=== PATIENT | female | born 1985 | race Caucasian/White ===

== ENCOUNTER 2018-02-02 22:24 | Inpatient (IN) | payer OTHER ==
[~2018-02-02] VITALS: Ht 165.1 cm; Wt 71.2 kg
[~2018-02-02 22:24] MED LIST: ABILIFY 15MG15 MG PO; ABILIFY30 M1 PO; BUSPIRONE HCL30 M1 PO; CLONIDINE HCL0.1 MG PO; CYMBALTA60 MG PO; DEPO-PROVE150 MG/11 IM; DULOXETINE HCL30 MG PO; IBUPROFEN800 M1 PO; IBUPROFEN800 MG PO; LYRICA100 M1 PO; MACROBID100 MG PO; OXCARBAZEPINE300 M1; PROAIR HFA8.5 GM INH; QUETIAPINE FUMA25 M1 PO; SEROQUEL XR50 MG PO; TRAZODONE HCL100 M1 PO; VALACYCLOVIR500 M1 PO; VICODIN5-300 PO; ZOFRAN ODT4 M1 SL
--- NOTE | 2018-02-02 23:12 | ED PSYCHIATRIC COMPLAINT ---
History of Present Illness General Chief Complaint: Psychiatric Related Complaint Stated Complaint: RAN OUT OF [employer] [place], "CAN'T DO THIS ANYMORE" Source: patient, old records Exam Limitations: no limitations Vital Signs & Intake/Output Vital Signs & Intake/Output Vital Signs Date Time Temp Pulse Resp B/P B/P Pulse O2 O2 Flow FiO2 Mean Ox Delivery Rate 02/03 1211 97.9 76 18 152/70 98 Room Air 02/03 0949 98.6 72 16 162/74 98 Room Air 02/03 0758 98.5 74 18 157/84 98 Room Air 02/03 0641 98.7 88 18 126/76 99 Room Air 02/03 0120 97.8 78 18 142/76 97 Room Air 02/02 2234 98.8 112 18 136/84 96 Room Air ED Intake and Output 02/03 0000 02/02 1200 Intake Total Output Total Balance Patient 157 lb Weight Weight Reported by Patient Measurement Method Allergies Coded Allergies: oxcarbazepine (Severe, NAUSEA 06/23/16) venom-wasp (WASP VENOM) (HIVES 03/28/16) methylphenidate (From RITALIN) (Mild, NAUSEA AND FEVER 03/28/16) oxycodone (GI 03/28/16) Reconcile Medications Albuterol Sulfate (Proair Hfa) 90 MCG HFA.AER.AD 2 PUF INH Q4-6 PRN PRN SHORTNESS OF BREATH (Reported) Aripiprazole (Abilify) 30 MG TABLET 1 TAB PO QAM MENTAL HEALTH (Reported) Buspirone HCl 30 MG TABLET 1 TAB PO BID MENTAL HEALTH (Reported) Clonidine HCl 0.1 MG TABLET 1 TAB PO QPM MENTAL HEALTH (Reported) Ibuprofen 800 MG TABLET 1 TAB PO PRN PAIN (Reported) Medroxyprogesterone Acetate (Depo-Provera) 150 MG/1 ML SYRINGE 1 ML IM Q3M CONTROL (Reported) Pregabalin (Lyrica) 100 MG CAPSULE 1 CAP PO TID PAIN (Reported) Quetiapine Fumarate 25 MG TABLET 1 TAB PO BID MENTAL HEALTH (Reported) Trazodone HCl 100 MG TABLET 2 TAB PO QPM SLEEP (Reported) Valacyclovir HCl (Valacyclovir) 500 MG TABLET 1 TAB PO DAILY ANTIVIRAL ( Reported) Triage Note: PT FROM HOME C/O DRUG DETOX. PT UPSET IN TRIAGE, TEARFUL STATING THAT SHE WOULD LIKE HELP FROM USING DRUGS AND "DOESNT WANT TO " PT DENIES -SI/-HI. PT IN TRIAGE CONTINUALLY MOVING AND FIDGETING. PTS VSS. PT STATES "IM SLOWLY KILLING MYSELF, I NEED HELP, I RAN OUT OF MY MEDICATIONS AND I USE HEROIN, COCAINE, MARIJUANA." PT ARRIVED WITH [facility]. PT REPORT SMOKED "CRACK" 1 HR PRIOR TO ARRIVAL AND FOR THE PAST FEW DAYS AROUND "100 DOLLARS OF CRACK PER DAY" Triage Nurses Notes Reviewed? yes Onset: Just prior to arrival Duration: day(s):, constant, continues in ED Timing: recent history Severity: severe Associated Symptoms: impaired concentration LMP (ages 10-50): unknown : No Patient currently breastfeeds: No HPI: The patient reports abusing crack heroin marijuana. She feels anxious confused and that they are going to lead to an early . She is looking for help for her addictions. She reports not being compliant with her medications. She denies fever chills nausea vomiting diarrhea abdominal pain chest pain shortness breath headache dysuria rash bleeding suicidal ideation homicidal ideation. (Kirby Arreola MD) Past History Travel History Traveled to [place] past 21 day No Medical History Any Pertinent Medical History? see below for history Neurological: migraine, FIBROMYALGIA TBI EENT: NONE Cardiovascular: NONE Respiratory: bronchitis Gastrointestinal: constipation, irritable bowel syndrome Hepatic: NONE Renal: NONE Musculoskeletal: CHRONIC BACK PAIN Psychiatric: anxiety, DEPRESSION, BIPOLAR, PTSD POLYSUBSTANCE ABUSE. Endocrine: NONE Blood Disorders: NONE Cancer(s): NONE COUNTER HELP/Reproductive: genital herpes History of MRSA: No History of VRE: No History of CDIFF: No Influenza Vaccine: 06/21/15 Surgical History Surgical History: non-contributory Psychosocial History Who do you live with Patient/Self What is your primary language Latvian Tobacco Use: Current Daily Use Daily Tobacco Use Amount/Type: => 5 Cigarettes daily ETOH Use: occasional use Illicit Drug Use: cocaine, heroin, marijuana Family History Family History, If Any: Relation not specified for: *No pertinent family history Hx Contributory? No (Kirby Arreola MD) Review of Systems Review of Systems Constitutional: Reports: no symptoms. EENTM: Reports: no symptoms. Respiratory: Reports: no symptoms. Cardiovascular: Reports: no symptoms. GI: Reports: no symptoms. Genitourinary: Reports: no symptoms. Musculoskeletal: Reports: no symptoms. Skin: Reports: no symptoms. Neurological/Psychological: Reports: see HPI, depressed, emotional problems. Hematologic/Endocrine: Reports: no symptoms. Immunologic/Allergic: Reports: no symptoms. All Other Systems: Reviewed and Negative (Kirby Arreola MD) Physical Exam Physical Exam General Appearance: well developed/nourished, alert, awake, anxious, moderate distress, thin Head: atraumatic, normal appearance Eyes: Bilateral: normal appearance, PERRL, EOMI. Ears, Nose, Throat: normal pharynx, normal ENT inspection, hearing grossly normal Neck: normal inspection, supple, full range of motion, no midline tenderness Respiratory: normal breath sounds, chest non-tender, no respiratory distress, quiet respiration, lungs clear Cardiovascular: regular rate/rhythm, normal peripheral pulses, norml femoral pulses equa Gastrointestinal: normal bowel sounds, soft, non-tender, no organomegaly Extremities: normal range of motion, no ligament instability Neurological/Psychiatric: no motor/sensory deficits, awake, agitated, alert, normal mood/affect, anxious, marketing communications assistant II-XII nml as tested, oriented x 3 Appearance/Memory/Insight: disheveled, impaired insight Behavoir/Eye Contact/Speech: avoids eye contact, increased rate of speech Thoughts/Hallucinations: no apparent hallucination Skin: intact, normal color, warm/dry SAD PERSONS Done? patient not suicidal (Kirby Arreola MD) Progress Differential Diagnosis: drug intoxication, drug overdose, drug withdrawal, electrolyte abnormality, hypoglycemia Plan of Care: Orders Procedure Date/time Status THYROID STIMULATING HORMONE 02/04 0600 Active POTASSIUM 02/04 0600 Active Regular Diet 02/03 D Active Regular Diet 02/03 B Complete Admit to inpatient psych 02/03 1232 Active Patient Data - inpatient psych 02/03 1202 Active Admit to inpatient psych 02/03 1202 Active URINE DRUG SCREEN FOR ER ONLY 02/03 1017 Complete ED CRISIS PSYCH CONSULT 02/03 0622 Active Vital Signs 02/03 UNK Active Activity/Ambulation 02/03 UNK Active URINE 02/02 2307 Complete CIWA 02/02 2250 Active ETHANOL 02/02 2248 Complete COMPREHENSIVE METABOLIC PANEL 02/02 2248 Complete CBC WITHOUT DIFFERENTIAL 02/03 2248 Complete Current Medications Sig/Kel Start time Last Medication Dose Stop Time Status Admin Aripiprazole 5 MG DAILY 02/04 0900 UNVr (Abilify) Clonidine 0.1 MG Q6P PRN 02/03 1215 UNVr (Catapres) Dicyclomine HCl 20 MG Q6P PRN 02/03 1215 UNVr (Bentyl) Gabapentin 300 MG Q6P PRN 02/03 1215 UNVr (Neurontin) Hydroxyzine HCl 50 MG Q6P PRN 02/03 1215 UNVr (Atarax) Loperamide HCl 2 MG Q6P PRN 02/03 1215 UNVr (Imodium) Nicotine 2 MG Q2P PRN 02/03 1215 UNVr (Nicotine) Trazodone HCl 100 MG AT BEDTIME NEED.. 02/03 1215 UNVr (Desyrel) Nicotine 21 MG DAILY 02/03 1202 UNVr 02/03 (Nicoderm) 1209 Benztropine Mesylate 1 MG Q6P PRN 02/03 1200 UNVr (Cogentin 1 MG Tablet) Benztropine Mesylate 1 MG Q6P PRN 02/03 1200 UNVr (Cogentin) Haloperidol 5 MG Q6P PRN 02/03 1200 UNVr (Haldol) Haloperidol 5 MG Q6P PRN 02/03 1200 UNVr (Haldol) Lorazepam 2 MG Q6P PRN 02/03 1200 UNVr (Ativan) Lorazepam 2 MG Q6P PRN 02/03 1200 UNVr (Ativan) Albuterol Sulfate 2 PUF Q4-6 PRN PRN 02/02 2245 AC (Ventolin) Laboratory Tests 02/03/18 0957: Urine Opiates Screen 328, Methadone Screen 713 H, Barbiturate Screen 81, Ur Phencyclidine Scrn < 6.00, Amphetamines Screen < 100, U Benzodiazepines Scrn < 85, Urine Cocaine Screen > 1000 H, Urine Cannabis Screen 62.80 H, Urine Test NEGATIVE 02/03/18 0046: Anion Gap 12, Estimated GFR > 60, BUN/Creatinine Ratio 17.5, Glucose 90, Calcium 9.5, Total Bilirubin 0.4, AST 23, ALT 37, Alkaline Phosphatase 84, Total Protein 6.6, Albumin 3.8, Globulin 2.8, Albumin/Globulin Ratio 1.4, CBC w Diff NO MAN DIFF REQ, RBC 4.57, MCV 87.9, MCH 30.6, MCHC 34.8, RDW 13.8, MPV 8.9, Gran % 52.2, Lymphocytes % 38.0, Monocytes % 8.2, Eosinophils % 0.9, Basophils % 0.7, Absolute Granulocytes 4.5, Absolute Lymphocytes 3.3, Absolute Monocytes 0.7 H, Absolute Eosinophils 0.1, Absolute Basophils 0.1, Serum Alcohol < 10.0 02/02/18 2248: Methadone Screen Cancelled, Barbiturate Screen Cancelled, Ur Phencyclidine Scrn Cancelled, Amphetamines Screen Cancelled, U Benzodiazepines Scrn Cancelled, Urine Cocaine Screen Cancelled, Urine Cannabis Screen Cancelled Hand-Off Endorsed To: Seth Hamilton MD Endorsed Time: 0700 Pending: consult, labs (drug screen) (Kirby Arreola MD) Departure Departure Disposition: STILL A PATIENT Condition: Stable Clinical Impression Primary Impression: Depression Secondary Impressions: Polysubstance abuse Referrals: Patient Has No Primary Care Dr (PCP/Family) Departure Forms: Customer Survey General Discharge Information (Kirby Arreola MD) Psych Admission Note Psychiatric Admission: I have seen and evaluated SURAJ HARRIS. I have also reviewed all the pertinent lab results and diagnostic results. SURAJ HARRIS will be admitted to our inpatient Psychiatric unit for treatment and care. (Joy YANG,Seth Case)
[2018-02-03 01:02] LABS: HEMATOCRIT 40.2 % (37-47); MEAN CORPUSCULAR HGB 30.6 PG (27.0-31.0); MEAN CORPUSCULAR HGB CONC 34.8 G/DL (33.0-37.0); MEAN CORPUSCULAR VOLUME 87.9 FL (81.0-99.0); MEAN PLATELET VOLUME 8.9 FL (7.4-10.4); PLATELET COUNT 168 /CUMM (130-400); RBC DISTRIBUTION WIDTH 13.8 % (11.5-14.5); RED BLOOD CELL CT 4.57 /CUMM (4.20-5.40); WHITE BLOOD CELL COUNT 8.6 /CUMM (4.8-10.8)
[2018-02-03 01:05] LABS: ABSOLUTE EOSINOPHIL COUNT 0.1 /CUMM (0.0-0.7); ABSOLUTE GRANULOCYTE CT 4.5 /CUMM (1.4-6.5); ABSOLUTE LYMPH COUNT 3.3 /CUMM (1.2-3.4); ABSOLUTE MONOCYTE COUNT 0.7 /CUMM (0.10-0.60); BASOPHIL % 0.7 % (0.0-2.0); EOSINOPHIL % 0.9 % (0-5); GRANULOCYTE % 52.2 % (42.2-75.2)
[2018-02-03 01:06] LABS: ABSOLUTE BASOPHIL COUNT 0.1 /CUMM (0.0-0.2)
--- NOTE | 2018-02-03 11:39 | ED PSYCH CRISIS CONSULTATION ---
Crisis Consult Basic Assessment Date of Consult: 02/03/18 Responsible Person/Accompanied By: self Insurance Authorization: Insurance #1: Insurance name: AL[employer] FU Phone number: Policy number: [id number] Group number: Authorization number: ED Provider: Patient's ED Provider: Kirby Arreola MD Primary Care Physician: Patient's PCP: Patient Has No Primary Care Dr PCP's Phone Number: Current Psychiatrist: none Chief Complaint: Psychiatric Related Complaint Patient's Quote: "I'm slowly killing myself." Present Illness: The pt is a 32yo female who arrived at the ED stating Im slowly killing myself. Pt reports she relapsed several months ago and has been using heroin and crack cocaine. During this assessment the pt presented drowsy, oriented and cooperative with goal directed speech. The pt denies SI but reports she is depressed and gave up fighting. The pt is requesting inpatient treatment. The pt denies HI, AH and VH. The pt reports a hx of depression, bipolar, PTSD, insomnia and addiction. The pt denies any prior suicide attempts. The pt reports a long hx of relapsing after brief periods of sobriety. The pt reports she has been binging on heroin and crack over the past several months after detoxing off of Suboxone. The pt reports she last injected heroin 3 days ago and purchased methadone off the street yesterday. The pt reports she has been smoking crack cocaine daily. The pt reports poor sleep and poor concentration. The pt denies any problems with appetite. The pts toxicology screen is positive for cocaine, methadone and cannabis. The pt reports she has been living in a tent on the street in [place] and has minimal support. The pt reports a long hx of rehabs as including [facility], [facility] and [facility]. The pt reports her most recent provider (several months ago) was Dr. Gutierrez in [place]. The pt reports she cannot remember the names of her past psychiatric medication. CSSRS completed and placed in the pt's chart. This marketing writer spoke with pts financial and healthcare conservator Cesilia Bard ). Ms. Vicente stated she is an litigation attorney associate and the court appointed conservator. Ms. Vicente reports she has been encouraging the pt to seek inpatient dual dx treatment. Ms. Vicente reports she is increasingly worried about the pts safety. Ms. Vicente reports the pt is demonstrating poor judgement and had multiple relapses in the past year. Ms. Vicente is not aware of any suicidal statements or behavior. Ms. Vicente reports the pt and her boyfriend temporarily moved in with the pts grandmother after the pt was discharged from a sober home for violating the house rules. Ms. Vicente stated the pts 3yo daughter is living with the pts father. Ms. Vicente stated she is aware the pt made SI statements in the past. Ms. Vicente stated the pt has been prescribed Lyrica for fibromyalgia and back pain. Ms. Vicente stated the pt has an implant in her neck to help manage pain and questioned if the implant needs to be removed. The pt was last seen in the ED at [facility] on June 2016. The pt presented with depression with SI and cocaine use. The pt has 2 inpatient admissions to [facility], March 2016 and June 2016. Pt's presentation discussed by phone with Dr. Augustin, plan is for hospitalization on [facility]. Pt stated she is in agreement with this plan. Pt' s conservator Ms. Vicente stated by phone she is in agreement with this plan. Ms. Vicente is coming to the ED to sign the voluntary admission form. Patient's Address: [place] [address] Other Phone Number: Who Do You Live With? Patient/Self Family/Informants Interviewed: spoke by phone with conservator Cesilia Vicente Allergies - Coded Allergies: oxcarbazepine (Severe, NAUSEA 06/23/16) venom-wasp (WASP VENOM) (HIVES 03/28/16) methylphenidate (From RITALIN) (Mild, NAUSEA AND FEVER 03/28/16) oxycodone (GI 03/28/16) Current Medications - Scheduled Medications Aripiprazole (Abilify) 30 MG TABLET 1 TAB PO QAM MENTAL HEALTH (Reported) Entered as Reported by Mariama Harrison on 03/28/16 1601 Buspirone HCl 30 MG TABLET 1 TAB PO BID MENTAL HEALTH #60 (Reported) Entered as Reported by Mariama Harrison on 03/28/16 1601 Clonidine HCl 0.1 MG TABLET 1 TAB PO QPM MENTAL HEALTH (Reported) Entered as Reported by Mariama Harrison on 03/28/16 1602 Medroxyprogesterone Acetate (Depo-Provera) 150 MG/1 ML SYRINGE 1 ML IM Q3M CONTROL (Reported) Entered as Reported by Mariama Harrison on 03/28/16 1603 Pregabalin (Lyrica) 100 MG CAPSULE 1 CAP PO TID PAIN #90 (Reported) Entered as Reported by Daniele Rust on 06/23/16 1104 Quetiapine Fumarate 25 MG TABLET 1 TAB PO BID MENTAL HEALTH #60 (Reported) Entered as Reported by Daniele Rust on 06/23/16 1106 Trazodone HCl 100 MG TABLET 2 TAB PO QPM SLEEP #60 (Reported) Entered as Reported by Mariama Harrison on 03/28/16 1601 Valacyclovir HCl (Valacyclovir) 500 MG TABLET 1 TAB PO DAILY ANTIVIRAL #90 ( Reported) Entered as Reported by Mariama Harrison on 03/28/16 1603 Scheduled PRN Medications Albuterol Sulfate (Proair Hfa) 90 MCG HFA.AER.AD 2 PUF INH Q4-6 PRN PRN SHORTNESS OF BREATH #9 (Reported) Entered as Reported by Jimbo Murcia APRN on 06/28/16 1708 Ibuprofen 800 MG TABLET 1 TAB PO PRN PAIN #60 (Reported) Entered as Reported by Mariama Harrison on 03/28/16 1602 Laboratory Results: Laboratory Tests 02/03/18 0957: Urine Opiates Screen 328, Methadone Screen 713 H, Barbiturate Screen 81, Ur Phencyclidine Scrn < 6.00, Amphetamines Screen < 100, U Benzodiazepines Scrn < 85, Urine Cocaine Screen > 1000 H, Urine Cannabis Screen 62.80 H, Urine Test NEGATIVE 02/03/18 0046: Anion Gap 12, Estimated GFR > 60, BUN/Creatinine Ratio 17.5, Glucose 90, Calcium 9.5, Total Bilirubin 0.4, AST 23, ALT 37, Alkaline Phosphatase 84, Total Protein 6.6, Albumin 3.8, Globulin 2.8, Albumin/Globulin Ratio 1.4, CBC w Diff NO MAN DIFF REQ, RBC 4.57, MCV 87.9, MCH 30.6, MCHC 34.8, RDW 13.8, MPV 8.9, Gran % 52.2, Lymphocytes % 38.0, Monocytes % 8.2, Eosinophils % 0.9, Basophils % 0.7, Absolute Granulocytes 4.5, Absolute Lymphocytes 3.3, Absolute Monocytes 0.7 H, Absolute Eosinophils 0.1, Absolute Basophils 0.1, Serum Alcohol < 10.0 02/02/18 2248: Methadone Screen Cancelled, Barbiturate Screen Cancelled, Ur Phencyclidine Scrn Cancelled, Amphetamines Screen Cancelled, U Benzodiazepines Scrn Cancelled, Urine Cocaine Screen Cancelled, Urine Cannabis Screen Cancelled Past History Past Medical History Neurological: migraine, FIBROMYALGIA TBI EENT: NONE Cardiovascular: NONE Respiratory: bronchitis Gastrointestinal: constipation, irritable bowel syndrome Hepatic: NONE Renal: NONE Musculoskeletal: CHRONIC BACK PAIN Psychiatric: anxiety, DEPRESSION, BIPOLAR, PTSD POLYSUBSTANCE ABUSE. 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 Psychosocial History Strengths/Capabilities: Motivated for treatment, involved conservator Physical Limitations (Interventions): Chronic neck/back pain, chronic migraines Psychiatric Treatment History Psych Treatment Psychiatric Treatment Yes Inpatient Treatment Yes Outpatient Treatment Yes Location of Treatment Dr. Hafsa Hayes, pt unable to identify other providers Reason for Treatment depression, Bipolar, PTSD, substance use Dates of Treatment long hx Response to Treatment poor Diagnosis by History: Per patient- depression, Bipolar; cocaine use disorder, Cannibis use disorder, opiate use disorder Substance Use/Abuse History Drug Use/Abuse 1 Substances Used/Abused Yes Substance Used/Abused Crack Cocaine First Use age 24 Last Used 02/02/18 How much used/taken pt reports 1 gram or more per day How often daily For how long 8 years Route of use inhale Drug Use/Abuse 2 Substances Used/Abused Yes Substance Used/Abused Heroin First Use age 31 Last Used 01/31/18 How much used/taken pt reports 2-3 bags per day How often daily For how long past 1 year Route of use inject Drug Use/Abuse 3 Substances Used/Abused Yes Substance Used/Abused Marijuana First Use pt unable to identify Last Used 02/02/18 How much used/taken pt unable to quantify How often daily For how long pt reports a long hx Route of use smoke Substance Abuse Treatment Substance Abuse Treatment Past Substance Abuse [place] Yes Inpatient Treatment Yes Outpatient Treatment Yes Location of Treatment [facility], Dr. Naoman ([place]) Reason for Treatment Heroin, Crack Cocaine Dates of Treatment Pt reports a long hx Response to Treatment pt reports frequent relapses. Current Mental Status Mental Status Orientation: Person, Place, Situation Affect: Sad Speech: WNL Neuro-vegetative: Concentration Poor, Sleep Disturbance Appearance Appearance- Dress/Hygiene: appropriate Behaviors Thought Process: WNL Thought Content: WNL Memory: WNL Insight: Fair SI/HI Risk Assessment Past Suicidal Ideation/Attempts Yes Current Suicidal Ideation/Att Yes Past Homicidal Ideation/Att: No Current Homicidal Ideation/Attempts No Degree of Intent: Thoughts/No Intent Danger To: Self Gravely Disabled: Poor Impulse Control, Poor Judgment Risk Factors: access to lethal means, chronic/serious med cond., high anxiety/ distress, SA/MH hospitalized, substance abuse, poor impulse control, lack of outcome concern, limited support Lethality Ratin PTSD Checklist PTSD Done? patient declined ED Management Sitter: Yes Restraints: No DSM5/PS Stressors/Medical Prob Diagnosis' (DSM 5, Stressors, Medical): F32.9 Unspecified Depressive Disorder F14.20 Stimulant Use Disorder, Cocaine, Severe F11.20 Opioid Use Disorder, Severe F12.20 Cannabis Use Disorder, Severe F43.10 Post Traumatic Stress Disorder Current GAF: 30 Departure Disposition Psych Medical Clearance Date: 02/03/18 Medically Cleared at: 929 Time Started: 929 Time Ended: 1015 Psychiatrist Consulted: Dr. Augustin Date Disposition Established: 02/03/18 Time Disposition Established: 1202 Plan for Disposition - Modality: Inpatient Psychiatry Facility: [facility] Rationale for Disposition: Pt's risk factors warrant hospitalization. Type of IP Admission: Voluntary Referrals Patient Has No Primary Care Dr (PCP/Family)
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
[2018-02-03 15:49] VITALS: BP 125/73
--- NOTE | 2018-02-03 17:46 | History & Physical ---
General Information and HPI MD Statement: I have seen and personally examined SURAJ HARRIS and documented this H&P. Source of Information: patient Exam Limitations: no limitations History of Present Illness: Ms. Harris is a 32 yo F with PMHx of Fibromyalgia (`2007), chronic migraine, smoker ( PPD), gential herpes came to ED because she wanted to get help with depression/bipoloar disorder. She has no place to go and lives in a tent. She reports going to [facility] in [place] for primary care physicians. However, she ran out of her meds and recently called her PCP for med refills. Also reports that about a month ago was discharged by her Psych treatment provider from [facility]. The pt denies any problems with appetite. The pts toxicology screen is positive for cocaine, methadone and cannabis. Allergies/Medications Allergies: Coded Allergies: oxcarbazepine (Severe, NAUSEA 06/23/16) venom-wasp (WASP VENOM) (HIVES 03/28/16) methylphenidate (From RITALIN) (Mild, NAUSEA AND FEVER 03/28/16) oxycodone (GI 03/28/16) Home Med list Albuterol Sulfate (Proair Hfa) 90 MCG HFA.AER.AD 2 PUF INH Q4-6 PRN PRN SHORTNESS OF BREATH (Reported) Aripiprazole (Abilify) 30 MG TABLET 1 TAB PO QAM MENTAL HEALTH (Reported) Buspirone HCl 30 MG TABLET 1 TAB PO BID MENTAL HEALTH (Reported) Clonidine HCl 0.1 MG TABLET 1 TAB PO QPM MENTAL HEALTH (Reported) Ibuprofen 800 MG TABLET 1 TAB PO PRN PAIN (Reported) Medroxyprogesterone Acetate (Depo-Provera) 150 MG/1 ML SYRINGE 1 ML IM Q3M CONTROL (Reported) Pregabalin (Lyrica) 100 MG CAPSULE 1 CAP PO TID PAIN (Reported) Quetiapine Fumarate 25 MG TABLET 1 TAB PO BID MENTAL HEALTH (Reported) Trazodone HCl 100 MG TABLET 2 TAB PO QPM SLEEP (Reported) Valacyclovir HCl (Valacyclovir) 500 MG TABLET 1 TAB PO DAILY ANTIVIRAL ( Reported) Past History Travel History Traveled to [place] past 21 day No Medical History Neurological: migraine, FIBROMYALGIA TBI EENT: NONE Cardiovascular: NONE Respiratory: bronchitis Gastrointestinal: constipation, irritable bowel syndrome Hepatic: NONE Renal: NONE Musculoskeletal: CHRONIC BACK PAIN Psychiatric: anxiety, DEPRESSION, BIPOLAR, PTSD POLYSUBSTANCE ABUSE. 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 Past Family/Social History Family History Relations & Conditions if any Relation not specified for: *No pertinent family history Psychosocial History Where do you live? Home ETOH Use: occasional use Illicit Drug Use: cocaine, heroin, marijuana Review of Systems Review of Systems Constitutional: Reports: see HPI. EENTM: Denies: no symptoms. Cardiovascular: Denies: no symptoms. Respiratory: Denies: no symptoms. Genitourinary: Denies: no symptoms. Exam & Diagnostic Data Last 24 Hrs of Vital Signs/I&O Vital Signs Date Time Temp Pulse Resp B/P B/P Pulse O2 O2 Flow FiO2 Mean Ox Delivery Rate 02/03 1549 97.8 88 125/73 02/03 1431 98.2 80 18 147/72 97 Room Air Room Air 02/03 1211 97.9 76 18 152/70 98 Room Air 02/03 0949 98.6 72 16 162/74 98 Room Air 02/03 0758 98.5 74 18 157/84 98 Room Air 02/03 0641 98.7 88 18 126/76 99 Room Air 02/03 0120 97.8 78 18 142/76 97 Room Air 02/02 2234 98.8 112 18 136/84 96 Room Air Intake & Output 02/03 1600 02/03 0800 02/03 0000 Intake Total Output Total Balance Patient 71.214 kg Weight Weight Reported by Patient Measurement Method Physical Exam General Appearance Alert, Cooperative, No Acute Distress Skin No Rashes, No Breakdown HEENT Mucous Membr. moist/pink Lungs Clear to Auscultation Abdomen Soft, No Tenderness Neurological Strength at 5/5 X4 Ext Extremities No Clubbing, No Cyanosis Assessment/Plan Assessment: Ms. Harris is a 32 yo F with PMHx of Fibromyalgia (`2007), chronic migraine, smoker ( PPD), gential herpes came to ED because she wanted to get help with depression/bipoloar disorder. She has no place to go and lives in a tent. She reports going to [facility] ([facility] in [place] for primary care physicians. However, she ran out of her meds and recently called her PCP for med refills. Also reports that about a month ago was discharged by her Psych treatment provider from [facility]. The pt denies any problems with appetite. The pts toxicology screen is positive for cocaine, methadone and cannabis. found to have hypokalemia --replete K --f/u Psych recs As Ranked By This Provider Problem List: 1. Depression 2. Major depression Core Measures/Misc (04/01) Acute Coronary Syndrome ACS Diagnosis: No Congestive Heart Failure Congestive Heart Failure Diagnosis No Cerebrovascular Accident CVA/TIA Diagnosis: No VTE (View Protocol) VTE Risk Factors No risk factors No Mechanical VTE Prophylaxis d/t LowRisk-No Interven Req'd No VTE Pharm Prophylaxis d/t LowRisk-No Interven Req'd Sepsis (View protocol) Sepsis Present: No If YES complete Sepsis Event Note If YES complete Sepsis Event Note
[2018-02-03 20:04] VITALS: BP 107/69
[2018-02-03 20:05] VITALS: BP 107/69
[2018-02-03 21:56] VITALS: BP 113/55
[2018-02-04] VITALS (11 sets, daily range): BP systolic 111–131; BP diastolic 57–84
--- NOTE | 2018-02-04 14:44 | CPS PROVIDER INIT ASMT PSYCH ---
Psychiatric Admission [employer] Consultant's Note Reviewed: Yes Patient Seen and Examined: Yes Identifying Information: 32yo female who arrived at the ED stating Im slowly killing myself. Chief Complaint: Reaction to Hospitalization: The patient was admitted voluntarily History of Present Illness Onset of Illness: The pt is a 32yo female who arrived at the ED stating Im slowly killing myself. Pt reports she relapsed several months ago and has been using heroin and crack cocaine. During this assessment the pt presented drowsy, oriented and cooperative with goal directed speech. The pt denies SI but reports she is depressed and gave up fighting. The pt is requesting inpatient treatment. The pt denies HI, AH and VH. The pt reports a hx of depression, bipolar, PTSD, insomnia and addiction. The pt denies any prior suicide attempts. The pt reports a long hx of relapsing after brief periods of sobriety. The pt reports she has been binging on heroin and crack over the past several months after detoxing off of Suboxone. The pt reports she last injected heroin 3 days ago and purchased methadone off the street yesterday. The pt reports she has been smoking crack cocaine daily. The pt reports poor sleep and poor concentration. The pt denies any problems with appetite. The pts toxicology screen is positive for cocaine, methadone and cannabis. The pt reports she has been living in a tent on the street in [place] and has minimal support. The pt reports a long hx of rehabs as including [facility], [facility] and [facility]. The pt reports her most recent provider (several months ago) was Dr. Gutierrez in [place]. Circumstances Leading to Admission: See above Problem(s) Justifying Need for Admission: See above Past Psychiatric History Past Diagnosis(es)- if any: anxiety, DEPRESSION, BIPOLAR, PTSD POLYSUBSTANCE ABUSE. Past Precipitating Factors- if any: Relapses - Include inpatient and outpatient treatment Treatment History: Patient was previously admitted to she also was seeing a psychiatrist in the [place] area Previous diagnoses included included depression and bipolar disorder, PTSD, polysubstance use disorder patient had inpatient psychiatric hospitalizations History of Suicide Attempts or Gestures Patient denied past suicide attempts. Substance Abuse History: Crack cocaine and heroin, methadone, cannabis Allergies: Coded Allergies: oxcarbazepine (Severe, NAUSEA 06/23/16) venom-wasp (WASP VENOM) (HIVES 03/28/16) methylphenidate (From RITALIN) (Mild, NAUSEA AND FEVER 03/28/16) oxycodone (GI 03/28/16) Home Med List: Donta Rendon - Include any medical condition(s) that may - impact the patient's recovery/remission Past History Medical History Neurological: migraine, FIBROMYALGIA TBI EENT: NONE Cardiovascular: NONE Respiratory: bronchitis Gastrointestinal: constipation, irritable bowel syndrome Hepatic: NONE Renal: NONE Musculoskeletal: CHRONIC BACK PAIN Psychiatric: anxiety, DEPRESSION, BIPOLAR, PTSD POLYSUBSTANCE ABUSE. 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 Substance Use: Patient reportedly had history of alcoholism on both sides father and mother. Suicides: There has been no suicides in the family Social History Living Situation: Currently homeless. Significant Relationships (family/friends): Boyfriend, the patient also has a 4-year-old daughter but she has not seen in a while she has a very strained relationship with her daughter's father. The patient has 3/2 siblings Education: It is not clear how thought that the patient go in his education or training. Vocation/Occupation: Currently unemployed Legal: I am not sure whether the patient has any legal entanglements at this point. Healthly Behaviors Screening Tobacco Screening Tobacco Use from ED Docu: Current Daily Use Daily Tobacco Use Amount/Type: => 5 Cigarettes daily - If tobacco counseling indicated - the following topics are required. - #1 Recognizing dangerous situations. - #2 Coping Skills. - #3 Basic information about quitting. Status of Tobacco Cessation Counseling: #1, #2 AND #3 Completed Cessation Med Status Nicotine Gum Ordered Alcohol Screening - ETOH screen POS if BAL >=80 or Audit-C>= M4/F3 Audit-C Score from Diag Assess: 1 Blood Alcohol Level: Laboratory Tests 02/03 0046 Toxicology Serum Alcohol (<10 MG/DL) < 10.0 Alcohol Use Screening Results: Neg per Audit C &/or BAL - If ETOH counseling indicated - the following topics are required. - #1 Express concern about the patient's - drinking at unhealthy levels, include informing - of national norms for moderate drinking: - men <= 14 drinks/week, max 4 drinks/occasion - women <= 7 drinks/week, max 3 drinks/occasion - #2 Providing feedback, including linking alcohol to - negative physical effects (liver injury, hypertension) - negative emotional effects (relationship problems and - depression) - negative occupational consequences (reduced work - performance) - #3 Advising the patient to abstain from alcohol or - to drink below national norms for moderate drinking - (as listed above). Status of ETOH Use Counseling: N/A B/C NO ETOH Use Metabolic Screening - Screen if on a Neuroleptic Medication - Metabolic screening should include: - Blood Pressure, BMI, Glucose or Hgb A1c, & a - Lipid profile from within the past 365 days. Metabolic Screening Patient on a neuroleptic BMI: Blood Pressure: 117/75 Laboratory Results From [facility] (If applicable): Lab Cholesterol 197 MG/DL 03/30/16 0636 Cholesterol/HDL Ratio 4 % 03/30/16 0636 HDL Cholesterol 46 mg/dL 03/30/16 0636 Hemoglobin A1c 5.5 % 03/30/16 0636 LDL Cholesterol, Calc 125 mg/dL 03/30/16 0636 Triglycerides 133 mg/dL 03/30/16 0636 Exam and Plan Mental Status Examination Ambulation Status: Steady gait Appearance: Slightly disheveled Attitude towards examiner: Marginally cooperative Psychomotor activity: Slightly increased psychomotor activity Behavior: No significant abnormalities, patient is in withdrawal Quality of speech: Reduced rate and quantity Affect: Irritable Mood: "Not feeling well"/in withdrawals Suicidal Ideation: He denied thinking of suicide today Homicidal Ideation: Denied thinking of homicide today Hallucinations: Denied hallucinations Paranoid/Delusional Material: Denied feeling paranoid, there were no delusions during the interview Difficulties with thought organization: Patient was coherent, there were no difficulties with thought organization. Insight: She showed partial insight Judgment: Judging by her recent history, judgment is poor Orientation: She was alert and oriented to person and place but not time Cognition: She seems to struggle with information processing, attention, and concentration Memory Function: Memory could not be assessed today Estimate of intellectual functioning: Average Assets/Strengths Patient Identified Assets/Strengths: The patient all in all seems to be physically healthy, she does have some supports in the community. Impression/Plan Impression and Plan: 52-year-old single white female with extensive substance abuse history presents with depression and anxiety and mild withdrawals - Include all active medical diagnosis that require tx DSM 5 Diagnosis(es): Unspecified bipolar disorder Generalized anxiety disorder Opioid use disorder Cocaine use disorder - Initial Tx Plan for Active Psych & Medical Conditions Treatment Plan: Inpatient psychiatric care with safety checks every 15 minutes and Reduce Abilify to 20 mg daily Reduce Cymbalta to 60 mg once daily Use methadone 30 mg today and 20 mg tomorrow morning Continue observation for withdrawal to Replace trazodone with Klonopin 1.5 mg at bedtime for sleep - Factors that would help patient function - in a less restrictive setting. Factors: The patient would be discharge once detoxification is completed and if she continues to deny thoughts of suicide
--- NOTE | 2018-02-04 14:51 | SOCIAL WORKER PROG NOTE PSYCH ---
See Addendum Social Work Progress Note Progress Note This press writer met with patient. She was lying in bed and reporting not feeling well due to "detoxing off Methadone, Heroin and Crack." Patient also stated that she struggles with neck and back pain and Fibromyalgia. Patient stated that she has been taking Methadone "for a couple months," unprescribed. Patient stating that she has been taking Heroin ("a couple bags a day," IV) and Crack (1 or more grams per day, smoked) for "a couple months." She stated that she is diagnosed with PTSD, Bipolar and insomnia. She is interested in going to rehab, specifically [facility]. "No CVH or work programs." Patient is agreeable to a family meeting with her father, Haris Laureano ([phone]). She denied SI/HI/ hallucinations.
[2018-02-05 07:50] VITALS: BP 124/74
[2018-02-05 08:03] VITALS: BP 124/74
--- NOTE | 2018-02-05 08:20 | CP SOUTH PROGRESS NOTE PSYCH ---
Psych (Inpt) Progress Note Progress Note Vital Signs Date Time Temp Pulse Resp B/P B/P O2 02/05 0803 97.2 72 124/74 02/05 0750 97.2 72 124/74 02/04 2010 96.9 78 131/80 02/04 2006 96.9 78 131/80 02/04 1755 97.8 02/04 1716 97.8 02/04 1609 90 131/84 Mental Status Examination Suzette was alert and oriented to time, person, and place. She had steady gait, she was well groomed today, calm and cooperative, she showed normal psychomotor activity, no significant abnormalities in behavior, normal speech, she showed brighter/animated affect, she reported feeling less depressed. She denied thinking of suicide today, Denied thinking of homicide today, Denied hallucinations, Denied feeling paranoid, there were no delusions during the interview Patient was coherent, there were no difficulties with thought organization. Today she did not seem to have problem with information processing. She showed better attention and concentration. There was no evidence of short-term memory impairment. Assessment: A 32-year-old single white female with extensive substance abuse history presents with depression and anxiety and mild withdrawals Diagnoses: Unspecified bipolar disorder Generalized anxiety disorder Opioid use disorder Cocaine use disorder. Treatment Plan Update: Continue Abilify 20 mg daily Continue Cymbalta 60 mg once daily Reduce methadone to 15 mg tomorrow , 10 mg the day after and 5 mg the day after then STOP Reduce Klonopin to 1 mg at bedtime Insight: She showed partial insight Judgment: Judging by her recent history, judgment is poor Orientation: She was alert and oriented to person and place but not time Cognition: She seems to struggle with information processing, attention, and concentration Memory Function: Memory could not be assessed today Estimate of intellectual functioning: Average Assets/Strengths Patient Identified Assets/Strengths: The patient all in all seems to be physically healthy, she does have some supports in the community. Impression/Plan Impression and Plan: 52-year-old single white female with extensive substance abuse history presents with depression and anxiety and mild withdrawals - Include all active medical diagnosis that require tx Diagnosis(es): Unspecified bipolar disorder Generalized anxiety disorder Opioid use disorder Cocaine use disorder Treatment Plan: Inpatient psychiatric care with safety checks every 15 minutes and Reduce Abilify to 20 mg daily Reduce Cymbalta to 60 mg once daily Use methadone 30 mg today and 20 mg tomorrow morning Continue observation for withdrawal to Replace trazodone with Klonopin 1.5 mg at bedtime for sleep
[2018-02-05 12:16] VITALS: BP 141/67
--- NOTE | 2018-02-05 15:34 | SOCIAL WORKER PROG NOTE PSYCH ---
See Addendum Social Work Progress Note Progress Note This typewriter ribbon winder met with the patient. She stated that she had a phone call with her father last night which "did not go well" and she does not want this typewriter ribbon winder to contact her father. Patient denied SI/HI/AH/VH. She is still interested in rehabs and has agreed to call her conservator with this typewriter ribbon winder later today. Patient also added that she is on the housing list in [place] and expects to be "in the top 90." This typewriter ribbon winder spoke with Diane at [place] [address] ([phone]) informing that the patient had signed herself in. Diane will relay this message to Juana Whitman ( hospital admissions clerk). Diane was given this typewriter ribbon winder's call back number.
--- NOTE | 2018-02-05 15:48 | Event Note ---
Event Note Event Note: [facility]SP for genital herpes outbreak. 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 Also claims that she has a painful lesion on her tongue. On Exam, there is a herpes blider on her right labius and small unspeficified tongue lesion which is not very obvious. I have incresaed her vAltrex dose to BID x 10 days and ordered Orajel TID. She is also asking about rsuming her Lyrica for her Fibromyalgia. I have told nursing staff to address this with patient's psychiatrist.
[2018-02-05 16:00] VITALS: BP 130/68
[2018-02-05 20:22] VITALS: BP 133/75
[2018-02-05 20:24] VITALS: BP 133/75
[2018-02-06 07:54] VITALS: BP 125/68
[2018-02-06 07:56] VITALS: BP 125/68
--- NOTE | 2018-02-06 09:00 | CP SOUTH PROGRESS NOTE PSYCH ---
Psych (Inpt) Progress Note Progress Note YIELD ANALYST, RN, OTR/L, Group and Activities Therapist, and Psychiatrist discussed the pt.'s progress, inpatient treatment plan, and aftercare plans. Vital Signs Date Time Temp Pulse B/P 02/06 0756 97.0 78 125/68 02/06 0754 97.0 78 125/68 Mental Status Examination Suzette was alert, oriented, and well groomed. She was calm, cooperative, and showed normal psychomotor activity. There were no significant abnormalities in behavior, speech, or affect. She reported improvement in mood, denied thinking of suicide, but made it clear that she is not ready--in her opinion--for discharge. Suzette denied thinking of violence or homicide, she denied hallucinations, denied feeling paranoid, there were no delusions during the interview. Patient was coherent, there were no difficulties with thought organization. Today she did not seem to have problem with information processing. She showed better attention and concentration. Assessment: A 32-year-old single white female with extensive substance abuse history presents with depression and anxiety and mild withdrawals Diagnoses: Unspecified Bipolar Disorder Generalized Anxiety Disorder Opioid Use disorder Cocaine Use disorder. Treatment Plan Update: Reduce methadone 10 mg tomorrow and 5 mg the day after then STOP Reduce Klonopin to 0.5 mg at bedtime Lyrica was added yesterday Continue Abilify 20 mg daily Continue Cymbalta 60 mg once daily
--- NOTE | 2018-02-06 14:23 | SOCIAL WORKER PROG NOTE PSYCH ---
Social Work Progress Note Progress Note [facility] concurrent review entered: Determination Status: PENDED The services requested require additional review. You will be contacted regarding the status of this request if further information is needed. An authorization decision will be made within the required timeframes and details of that decision may be found under the member's authorization history. Member Name Member ID Member Subscriber Name Subscriber ID SURAJ KIMBERLY [id number] SURAJ [facility] [id number] Pended Authorization # Client Authorization # Type of Request [id number] CONCURRENT Date of Admission/ Start of Services Requested From Submission Date 02/03/2018 02/06/2018 02/06/2018 Level of Service Type of Service Level of Care Type of Care INPATIENT/[facility] Mental Health Inpatient Inpatient [facility] - Inpatient Hospital Reason Code
--- NOTE | 2018-02-06 17:07 | SOCIAL WORKER PROG NOTE PSYCH ---
Social Work Progress Note Progress Note This senior writer met with patient. She described herself as "woozy from Methadone. I'm a mess." Patient became very tearful discussing being in the hospital and being homeless. She was agreeable to this senior writer contacting her conservator, Cesilia Mooney, regarding referrals. Patient and this senior writer worked on the Crisis and Respite referral, the [place] referral and part of the Psychiatric[facility] referral. She denied SI/HI/AH/VH. This senior writer spoke with Cesilia Mooney by phone who provided her fax number ). She was informed of the programs that the patient would like to be referred to. Jenn Mooney was in agreement with these. RICKEY's were faxed to Cesilia to be signed and returned. This senior writer received a call from Chacha Wild with [facility]. She stated that the patient would be authorized with the next review due on 02/08/18. If additional days were to be requested beyond 02/08/18, a peer to peer would likely take place.
[2018-02-06 19:46] VITALS: BP 131/67
[2018-02-07 08:17] VITALS: BP 115/68
--- NOTE | 2018-02-07 11:46 | CP SOUTH PROGRESS NOTE PSYCH ---
Psych (Inpt) Progress Note Progress Note KAVIN, RN, OTR/L, Group and Activities Therapist, and Psychiatrist discussed the pt.'s progress, inpatient treatment plan, and aftercare plans. Vital Signs: Laboratory Tests 02/07 Hep Bs Antigen (NONREACTIVE) NONREACTIVE Hep Bs Antibody (NONREACTIVE) NONREACTIVE Hepatitis C Antibody (NONREACTIVE) NONREACTIVE HIV 1&2 Ab Western Blot (NONREACTIVE) NONREACTIVE Vital Signs Date Time Temp Pulse B/P 02/07 0817 97.1 86 115/68 02/06 1946 99.0 85 131/67 Mental Status: Suzette was alert & oriented. She was calm, cooperative, and showed normal psychomotor activity. There were no significant abnormalities in behavior, speech, or affect. Suzette reported improvement in mood, denied thinking of suicide, and denied thinking of violence or homicide. She denied hallucinations, denied feeling paranoid, there were no delusions during the interview. Patient was coherent, there were no difficulties with thought organization. Suzette is showing improvement in information processing. She showed better attention and concentration. Assessment Update: A 32-year-old Single White female with extensive substance abuse history presents with depression and anxiety and mild withdrawals Diagnoses: Unspecified Bipolar Disorder Generalized Anxiety Disorder Opioid Use disorder Cocaine Use disorder. Treatment Plan Update: The patient claims that she has been using Seroquel for sleep. Restart Seroquel 50 mg at bedtime and may repeat one dose if not asleep in 90 minutes Reduce methadone to 5 mg x once tomorrow AM then STOP Klonopin 0.5 mg at bedtime x tonight then STOP Seroquel 25 mg as needed every 4 hours for anxiety Continue other medications unchanged
--- NOTE | 2018-02-07 14:39 | SOCIAL WORKER PROG NOTE PSYCH ---
Social Work Progress Note Progress Note Faxed referral to [facility], [place] and [facility].
--- NOTE | 2018-02-07 17:07 | SOCIAL WORKER PROG NOTE PSYCH ---
Social Work Progress Note Progress Note This customs entry writer met with patient. She described her mood as "a little better. Not as woozy." She stated that she missed the first group today due to being very tired as she did not sleep well last night (patient was unsure as to why). She stated that she had been awake every hour last night. Patient was informed of rehab referrals that were submitted yesterday. She requested to call her conservator, Cesilia Mooney ([phone]), with this customs entry writer. During this call patient discussed belongings that she would like to be delivered to [facility]. This customs entry writer also informed Cesilia that the [facility] for Crisis [facility] Res[facility] would be faxed to her today (this was done and returned by Cesilia with her signature). This customs entry writer received call from Yara at [facility] in interest of conducting a phone screening with the patient. Patient began the screening and learned from Yara that there is a warrant for the patient's arrest. Yara spoke with this customs entry writer and stated that they would be unable to accept her because of the warrant (illegal operation of a motor vehicle on 12/20/17 and was released with a promise to appear with a re-arrest warrant issued on 01/22/18). Patient requested to call Cesilia Mooney and left a vm. Patient was tearful but did not want to discuss this matter. This customs entry writer informed Kalin Gonzalez RN ([facility]).
[2018-02-07 19:49] VITALS: BP 138/82
[2018-02-08 07:56] VITALS: BP 109/80
--- NOTE | 2018-02-08 12:13 | CP SOUTH PROGRESS NOTE PSYCH ---
Psych (Inpt) Progress Note Progress Note MAINTENANCE REPAIRER, RN, OTR/L, Group and Activities Therapist, and Psychiatrist discussed the pt.'s progress, inpatient treatment plan, and aftercare plans. Laboratory Tests 02/08 0730 Chemistry Hemoglobin A1c (4.2 - 5.8 %) 5.3 Triglycerides (<150 mg/dL) 206 H Cholesterol (<200 MG/DL) 151 LDL Cholesterol, Calc (65 - 129 mg/dL) 59 L HDL Cholesterol (40 - 60 mg/dL) 51 Cholesterol/HDL Ratio (0.00 - 4.23 %) 3 Vital Signs Date Time Temp Pulse Resp B/P B/P Pulse O2 O2 Flow FiO2 Mean Ox Delivery Rate 02/08 0756 98.5 96 109/80 02/07 1949 97.3 99 138/82 Mental Status: Suzette Nguyen reported that she would like to be discharged Sunday before 11 AM. She reported that she would be staying with her grandmother in [place] for that night and then going to court with her conservator the next morning because of an outstanding warrant. She was was alert & oriented. She was calm, cooperative, and showed normal psychomotor activity. There were no significant abnormalities in behavior, speech, or affect. Suzette reported improvement in mood, denied thinking of suicide, and denied thinking of violence or homicide. She denied hallucinations, denied feeling paranoid, there were no delusions during the interview. Patient was coherent, there were no difficulties with thought organization. Suzette is showing improvement in information processing. She showed better attention and concentration. Assessment Update: Suzette Laureano is a 32-year-old Single White female with extensive substance abuse history presents with depression and anxiety and mild withdrawals. Since her admission to the inpatient psychiatric unit at [facility] on , Suzette has shown significant improvement in her mental state. She has been free of thoughts of suicide for the past 2 days. Diagnoses: Unspecified Bipolar Disorder Generalized Anxiety Disorder Opioid Use disorder Cocaine Use disorder. Treatment Plan Update: Discontinue methadone (last dose of 5 mg received this morning) Discontinue Klonopin (last dose of 0.5 mg received last night) Increase that regularly scheduled dose of Seroquel to 100 mg at bedtime Discontinue as needed Seroquel for sleep Increase Cymbalta to 90 mg daily Continue Seroquel 25 mg as needed every 4 hours for anxiety Continue other medications unchanged
--- NOTE | 2018-02-08 12:48 | SOCIAL WORKER PROG NOTE PSYCH ---
Social Work Progress Note Progress Note Completed P concurrent review for continued stay. Check [facility] website for next review date please.
--- NOTE | 2018-02-08 17:47 | SOCIAL WORKER PROG NOTE PSYCH ---
Social Work Progress Note Progress Note 2:25pm This conventional underwriter spoke with Laina at [facility] for a screening. Patient has been placed on their wait list (time frame unknown). Laina stated that she she is aware of the warrant per the judicial website. This conventional underwriter met with patient. She stated that she had not continued to call rehabs due to [facility] informing her that it was unlikely that she would be accepted to a rehab due to the warrant. Patient was informed of the screening with [facility]. She stated that she would continue to call rehab programs. She stated that she met with Dr. Kwok today and an anticipated discharge date has been set for 02/11/18. Patient stated that she plans to stay with her grandmother Sunday night and will go to the [facility] with Cesilia Mooney on Sunday regarding the warrant. She requested to call her grandmother (Andrew Laureano, ) regarding this. She informed Andrew Sridevi of possible discharge on Sunday and that she is placed on the Crisis and Respite wait list. Kaitlynn Sridevi stated that she would be able to spend "a few nights" at her home. Kaitlynn Laureano stated that she was expecting Cesilia Mooney to visit this afternoon and will discuss it with her as well. This conventional underwriter and patient attempted to call Cesilia Mooney at 3:40pm ([phone]) to discuss discharge plans and a discharge date. A vm was left with call back number. Patient described her mood as "ok" and denied SI/HI/hallucinations. She was appropriately engaged in this conversation and the phone calls. She stated that she will attempt to reach Cesilia this afternoon.
[2018-02-08 19:48] VITALS: BP 116/69
[2018-02-09 08:21] VITALS: BP 105/75
--- NOTE | 2018-02-09 12:42 | CP SOUTH PROGRESS NOTE PSYCH ---
Psych (Inpt) Progress Note Progress Note Include the following elements, when applicable: Involvement in the active treatment of the patient with behavioral observations of the patient and the patient's response to the treatment. Review of the ongoing treatment process in the context of the treatment plan. Indication of how multi-disciplinary staff members are carrying out the treatment plan. Plans for future interventions and recommendations for revision of the treatment plan. Liaison with other physicians/providers. Progress Note: Stated that she is conserved and that the woman is very helpful to help her make other decisions. She stated that she has a good relationship[ with her conservator and looks forward to continue working with her. She stated that she is doing better with higher dose of cymbalta, that she used to have 120mg dose. She stated that she is dealing with the withdrawal from the methadone, with hot/ cold sweats, change in temperature, with her seroquel, ibuprofen, and overall is able to manage her residual symptoms. She became tearful about her 4 year old child, stating that she has not seen her in four months and that her father won t let her see child unless she is with a mental health worker and not to see her longer until she is one year sober. MSE: young white woman, well groomed and with good eye contact. Her speech is normal rate and rhythm. She is well related. Her mood is initially normal and then down, affect is somewhat labile, and tearful. Her thinking is linear, becoming more tangential when discussing her daughter. She has no evidence of psychotic thought process, not disorganized. she denies thoughts of wanting to harm herself or anyone else. She is not hallucinating and has no evidence of internal preoccupation. Her insight is fair and judgment is fair. A: 32 year old woman with extensive drug use history, with depressive and anxiety symptoms, tearful about her daughter but otherwise doing well. She is future oriented, focused on maintaining her sobriety and getting custody of her daughter back. Risk factors are surrounding her arrest history and her substance use primarily. She has some awareness of her symptoms and is focused on maintaining her sobriety. Address with substance use programming, prn medication for her residual withdrawal sx; groups, milieu therapy.
[2018-02-09 19:49] VITALS: BP 123/60
[2018-02-10 07:55] VITALS: BP 125/65
[2018-02-10 09:03] LABS: ABSOLUTE BASOPHIL COUNT 0.1 /CUMM (0.0-0.2); ABSOLUTE EOSINOPHIL COUNT 0.3 /CUMM (0.0-0.7); ABSOLUTE GRANULOCYTE CT 3.6 /CUMM (1.4-6.5); ABSOLUTE LYMPH COUNT 3.2 /CUMM (1.2-3.4); ABSOLUTE MONOCYTE COUNT 0.4 /CUMM (0.10-0.60); BASOPHIL % 0.7 % (0.0-2.0); EOSINOPHIL % 3.3 % (0-5); MEAN CORPUSCULAR HGB 30.7 PG (27.0-31.0); MEAN CORPUSCULAR HGB CONC 34.5 G/DL (33.0-37.0); MEAN PLATELET VOLUME 9.3 FL (7.4-10.4); PLATELET COUNT 179 /CUMM (130-400); RED BLOOD CELL CT 4.94 /CUMM (4.20-5.40); WHITE BLOOD CELL COUNT 7.5 /CUMM (4.8-10.8)
--- NOTE | 2018-02-10 12:31 | CP SOUTH PROGRESS NOTE PSYCH ---
Psych (Inpt) Progress Note Progress Note Include the following elements, when applicable: Involvement in the active treatment of the patient with behavioral observations of the patient and the patient's response to the treatment. Review of the ongoing treatment process in the context of the treatment plan. Indication of how multi-disciplinary staff members are carrying out the treatment plan. Plans for future interventions and recommendations for revision of the treatment plan. Liaison with other physicians/providers. Progress Note: Stated that she is doing well, slept overnight. She had complaints of rectal bleeding (bright red per her) and concern for hemorrhoid, she admitted she was straining a lot. CBC is normal. No further bleeding per her. She also c/o pain this morning, then later stated she was fine. She wanted to be discharged today to help her grandmother who has some water piling up under her bed. We discussed likely discharge tmr as per primary team plan, and she was agreeable, stated that she would help her grandmother tmr. She is future focused, pleasant and doing well overall. MSE: young white woman, well groomed and with good eye contact. Her speech is normal rate and rhythm. She has no psychomotor changes. Her mood is good and affect is full and reactive. Thinking is goal directed. No evidence of psychotic thought process. She has no thoughts to harm herself or anyone else. She is not hallucinating and has no evidence of internal preoccupation. Her insight is fair and judgment is fair. A: 32 year old woman with extensive drug use history, with depressive and anxiety symptoms, tearful about her daughter but otherwise doing well. She is future oriented, focused on maintaining her sobriety and getting custody of her daughter back. Risk factors are surrounding her arrest history and her substance use primarily. She has some awareness of her symptoms and is focused on maintaining her sobriety. Address with substance use programming, prn medication for her residual withdrawal sx; groups, milieu therapy. complaints of pain from this morning are improved, she relates it to methadone withdrawal.
[2018-02-10 19:49] VITALS: BP 138/68
[2018-02-11 08:10] VITALS: BP 120/69
[2018-02-11] MEDS ORDERED: IBUPROFEN800 M1 PO (08:31)
[2018-02-11] MEDS ORDERED: PROAIR HFA8.5 GM INH (08:31)
[2018-02-11] MEDS ORDERED: NICORELIEF2 MG PO (08:31)
[2018-02-11] MEDS ORDERED: VALACYCLOVIR500 M1 PO (08:31)
[2018-02-11] MEDS ORDERED: LYRICA150 M1 PO (08:31)
[2018-02-11] MEDS ORDERED: SEROQUEL200 M1 PO (08:33)
[2018-02-11] MEDS ORDERED: DEPO-PROVE150 MG/11 IM (08:34)
--- NOTE | 2018-02-11 08:59 | CP SOUTH PROGRESS NOTE PSYCH ---
Psych (Inpt) Progress Note Progress Note INVESTIGATION DIVISION CAPTAIN, RN, OTR/L, Group and Activities Therapist, and Psychiatrist discussed the pt.'s progress, inpatient treatment plan, and aftercare plans. Mental Status: Suzette reported that she is ready for discharge and would be staying with her grandmother in [place] (going to court with her conservator tomorrow) She was was alert & oriented. She was calm, cooperative, and showed normal psychomotor activity. There were no significant abnormalities in behavior, speech, or affect. Suzette reported improvement in mood, denied thinking of suicide, and denied thinking of violence or homicide. She denied hallucinations, denied feeling paranoid, there were no delusions during the interview. Patient was coherent, there were no difficulties with thought organization. Suzette is showing improvement in information processing. She showed better attention and concentration. Assessment Update: Suzette Laureano is a 32-year-old Single White female with extensive substance abuse history presents with depression and anxiety and mild withdrawals. Since her admission to the inpatient psychiatric unit at [facility] on , Suzette has shown significant improvement in her mental state. She has been free of thoughts of suicide for the past 5 days. Diagnoses: Unspecified Bipolar Disorder Generalized Anxiety Disorder Opioid Use disorder Cocaine Use disorder. Treatment Plan Update: D/C Home F/U with Dual IOP Since her admission to the inpatient psychiatric unit at [facility] on , Suzette has shown significant improvement in her mental state. She has been free of thoughts of suicide for the past 2 days. Diagnoses: Unspecified Bipolar Disorder Generalized Anxiety Disorder Opioid Use disorder Cocaine Use disorder. Treatment Plan Update: Discontinue methadone (last dose of 5 mg received this morning) Discontinue Klonopin (last dose of 0.5 mg received last night) Increase that regularly scheduled dose of Seroquel to 100 mg at bedtime Discontinue as needed Seroquel for sleep Increase Cymbalta to 90 mg daily Continue Seroquel 25 mg as needed every 4 hours for anxiety Continue other medications unchanged
[2018-02-11] MEDS ORDERED: OMEPRAZOLE20 M2 PO (09:05)
[2018-02-11] MEDS ORDERED: ABILIFY15 M1 PO (09:05)
[2018-02-11] MEDS ORDERED: CYMBALTA30 M1 PO (09:05)
[2018-02-11] MEDS ORDERED: CYMBALTA60 M1 PO (09:05)
--- NOTE | 2018-02-11 09:08 | Patient Discharge Instructions ---
Psych Discharge Inst General Discharge Information Reason for Admission: "I am slowly killing myself" Psy Discharge Primary Diag+ Unspecified Bipolar DO Generalized Anxiety DO Psy Discharge Secondary Diag+ Opioid Use Disorder Summary Tests/Major Procedures Lab Cholesterol 151 MG/DL 02/08/18 0730 Cholesterol/HDL Ratio 3 % 02/08/18 0730 HDL Cholesterol 51 mg/dL 02/08/18 0730 Hemoglobin A1c 5.3 % 02/08/18 07 LDL Cholesterol, Calc 59 mg/dL L 02/08/18 0730 Triglycerides 206 mg/dL H 02/08/18 0730 Studies Pending at DC: None Patient Instructions Contact Information Your Psychiatrist on [facility] was Sundar YANG,Tomi * If you are experiencing an emergency related to this hospitalization, please call [phone] to contact the treating psychiatrist or the psychiatrist-on- call. * To Request a copy of your medical records, please contact the Medical Records Department at [phone]. * To request results of studies pending at the time of discharge, please call [phone]. * Continue your Medications until directed to stop by your Healthcare provider. General Medication Information Please continue to take your new medications and your continued home medications , unless otherwise indicated on your discharge medication list, or unless directed by your MD or TELEGRAPHER AGENT to stop them. Special Instructions Diet Regular Activity Normal - Tobacco Use Treatment Offered Post DC Medications Offered: Script Given-See Med List Post DC Tobacco Treatment Plan: Refused Tobacco Tx Pgm - EtOH/Drug Use D/O Treatment Offered Post DC Medications Offered: Med Not Indicated for D/O Post DC EtOH/SubAbuse TX Plan: Other SubAbuse/Dual Pgm Metabolic Screening Patient on a neuroleptic(s) . Enter below results for Hemoglobin A1C, and lipid panel if obtained during the last 365 days. BMI: 26.15 Blood Pressure: 120/69 Laboratory Results From [facility] (If applicable): Lab Cholesterol 151 MG/DL 02/08/18 0730 Cholesterol/HDL Ratio 3 % 02/08/18 0730 HDL Cholesterol 51 mg/dL 02/08/18 0730 Hemoglobin A1c 5.3 % 02/08/18 0730 LDL Cholesterol, Calc 59 mg/dL L 02/08/18 0730 Triglycerides 206 mg/dL H 02/08/18 07 Advance Directives Does the Patient have Medical Advance Directives No/Refused further info Does Pt have Psychiatric Advance Directives? No/Refused further info Does Patient have a Designated Surrogate Decision Maker: No Information About Psychiatric Advance Directives Provided? Refused Discharge Plan Post Hospital Treatment Plan: Rehab in Lieu of incarceration
--- NOTE | 2018-02-11 13:00 | DISCHARGE SUMMARY REPORT-PSYCH ---
Visit Information Visit Dates/Diagnosis' Admission Date: 02/03/18 Discharge Date: 02/11/18 Reason for Admission: "I am slowly killing myself" Psy Discharge Primary Diag: Unspecified Bipolar DO Generalized Anxiety DO Psy Discharge Secondary Diag: Opioid Use Disorder Hospital Course Significant Lab Findings: Lab Cholesterol 151 MG/DL 02/08/18 0730 Cholesterol/HDL Ratio 3 % 02/08/18 0730 HDL Cholesterol 51 mg/dL 02/08/18 0730 Hemoglobin A1c 5.3 % 02/08/18 07 LDL Cholesterol, Calc 59 mg/dL L 02/08/18 07 Triglycerides 206 mg/dL H 02/08/18 07 Course Complications: Patient did not have any complications while she was in the inpatient psychiatric unit Consultations: Patient had a history and physical examination by the manufacturing analyst. Please refer to the patient's electronic health record for the details of the H&P. Allergies: Coded Allergies: oxcarbazepine (Severe, NAUSEA 06/23/16) venom-wasp (WASP VENOM) (HIVES 03/28/16) methylphenidate (From RITALIN) (Mild, NAUSEA AND FEVER 03/28/16) oxycodone (GI 03/28/16) Hospital Course/TX Response: 02/04/2018: Impression and Plan: 52-year-old single white female with extensive substance abuse history presents with depression and anxiety and mild withdrawals. Diagnosis(es): Unspecified bipolar disorder Generalized anxiety disorder Opioid use disorder Cocaine use disorder Initial Treatment Plan: Inpatient psychiatric care with safety checks every 15 minutes and Reduce Abilify to 20 mg daily Reduce Cymbalta to 60 mg once daily Use methadone 30 mg today and 20 mg tomorrow morning Continue observation for withdrawal to Replace trazodone with Klonopin 1.5 mg at bedtime for sleep. 02/05/2018: Reduce methadone to 15 mg tomorrow , 10 mg the day after and 5 mg the day after then STOP Reduce Klonopin to 1 mg at bedtime 02/06/2018: Reduce methadone 10 mg tomorrow and 5 mg the day after then STOP Reduce Klonopin to 0.5 mg at bedtime Lyrica was added yesterday by the on-call psychiatrist 02/07/2018: The patient claims that she has been using Seroquel for sleep. Restart Seroquel 50 mg at bedtime and may repeat one dose if not asleep in 90 minutes Reduce methadone to 5 mg x once tomorrow AM then STOP Klonopin 0.5 mg at bedtime x tonight then STOP Seroquel 25 mg as needed every 4 hours for anxiety Continue other medications unchanged 02/08/2018: Discontinue methadone (last dose of 5 mg received this morning) Discontinue Klonopin (last dose of 0.5 mg received last night) Increase that regularly scheduled dose of Seroquel to 100 mg at bedtime Discontinue as needed Seroquel for sleep Increase Cymbalta to 90 mg daily 02/09/2018: Bernadette YANG's Assessment A: 32 year old woman with extensive drug use history, with depressive and anxiety symptoms, tearful about her daughter but otherwise doing well. She is future oriented, focused on maintaining her sobriety and getting custody of her daughter back. Risk factors are surrounding her arrest history and her substance use primarily. She has some awareness of her symptoms and is focused on maintaining her sobriety. Address with substance use programming, prn medication for her residual withdrawal sx; groups, milieu therapy. 02/10/2018: No changes in the patient's treatment plan or medications. 02/11/2018: Mental Status: Suzette reported that she is ready for discharge and would be staying with her grandmother in [place] (going to court with her conservator tomorrow) She was was alert & oriented. She was calm, cooperative, and showed normal psychomotor activity. There were no significant abnormalities in behavior, speech, or affect. Suzette reported improvement in mood, denied thinking of suicide, and denied thinking of violence or homicide. She denied hallucinations, denied feeling paranoid, there were no delusions during the interview. Patient was coherent, there were no difficulties with thought organization. Suzette is showing improvement in information processing. She showed better attention and concentration. Assessment Update: Suzette Laureano is a 32-year-old Single White female with extensive substance abuse history presents with depression and anxiety and mild withdrawals. Since her admission to the inpatient psychiatric unit at [facility] on , Suzette has shown significant improvement in her mental state. She has been free of thoughts of suicide for the past 5 days. Diagnoses: Unspecified Bipolar Disorder Generalized Anxiety Disorder Opioid Use disorder Cocaine Use disorder. Treatment Plan Update: D/C Home F/U with Dual IOP Discharge HBIPS - Tobacco Use Treatment Offered Post DC Medications Offered: Script Given-See Med List Post DC Tobacco Treatment Plan: Refused Tobacco Tx Pgm - EtOH/Drug Use D/O Treatment Offered Post DC Medications Offered: Script Given-See Med List Post DC EtOH/SubAbuse TX Plan: Freddy SubAbuse/Dual IOP Metabolic Screening - Screen if on a Neuroleptic Medication - Metabolic screening should include: - Blood Pressure, BMI, Glucose or Hgb A1c, & a - Lipid profile from within the past 365 days. Metabolic Screening Patient on a neuroleptic(s) . Enter below results for Hemoglobin A1C, and lipid panel if obtained during the last 365 days. BMI: 26.21 Blood Pressure: 120/69 Laboratory Results From [place] [facility] (If applicable): Lab Cholesterol 151 MG/DL 02/08/18 0730 Cholesterol/HDL Ratio 3 % 02/08/18 0730 HDL Cholesterol 51 mg/dL 02/08/18 0730 Hemoglobin A1c 5.3 % 02/08/18 0730 LDL Cholesterol, Calc 59 mg/dL L 02/08/18 0730 Triglycerides 206 mg/dL H 02/08/18 0730 Discharge Instructions General Discharge Information Multiple Neuroleptics: Not Applicable Discharge Diet Regular Discharge Activity Normal DC Disposition: Patient released home/self care to grandmother's house Referrals Ordered Referrals Intensive Outpt Psy-Substance 02/12/18 [address] [place], [place] [id number] [facility] IOP [address], [place] [phone] Intake: 02/12/18, at 10am Outpatient Psych - Substance 02/20/18 [address] [place], [place] [id number] [facility] [address], [place] [phone] Group meets every other Sunday at 4pm Next group: Sunday02/20/18 at 4pm Provider Referral For Groups: [Resources] [facility] in [place]: [phone] [facility] in [place]: [phone], ext [phone] [facility]: [phone] [facility]: [facility]: [phone] [facility]: [phone] [facility]: [phone] [facility]: [phone] [place] ([facility]): [phone] [place]: [phone] Prescriptions Stop taking the following medications: Aripiprazole (Abilify) 30 MG TABLET ORAL Every Morning Trazodone HCl (Trazodone HCl) 100 MG TABLET ORAL Every night Qty = 60 Buspirone HCl (Buspirone HCl) 30 MG TABLET ORAL TWICE DAILY Qty = 60 Clonidine HCl (Clonidine HCl) 0.1 MG TABLET ORAL Every night Pregabalin (Lyrica) 100 MG CAPSULE ORAL THREE TIMES DAILY Qty = 90 Quetiapine Fumarate (Quetiapine Fumarate) 25 MG TABLET ORAL TWICE DAILY Qty = 60 Continue taking these medications: Valacyclovir HCl (Valacyclovir) 500 MG TABLET 1 Tablet ORAL DAILY Qty = 30 Comments: Last Taken:02/11/18 Time:9AM This prescription has been renewed Albuterol Sulfate (Proair Hfa) 90 MCG HFA.AER.AD 2 Puff Inhale through mouth EVERY 4-6 HOURS NEEDED as needed for SHORTNESS OF BREATH Qty = 1 Comments: Last Taken:NOT USED IN THE HOSPITAL Time: This prescription has been renewed Medroxyprogesterone Acetate (Depo-Provera) 150 MG/1 ML SYRINGE 1 Milliliters INTRAMUSC Every 3 months Qty = 1 Comments: Last Taken:TO RECEIVE OUT PT Time:NOT GIVEN IN THE HOSPITAL This prescription has been renewed Start taking the following new medications: Nicotine (Nicorelief) 2 MG GUM 2 Milligram ORAL EVERY 2 HOURS NEEDED as needed for nicotine cravings Qty = 60 No Refills Comments: Last Taken:02/10/18 Time:7AM Aripiprazole (Abilify) 15 MG TABLET 15 Milligram ORAL DAILY Qty = 30 No Refills Comments: Last Taken:02/11/18 Time:9AM Omeprazole (Omeprazole) 20 MG CAPSULE.DR 40 Milligram ORAL DAILY BEFORE BREAKFAST Qty = 30 No Refills Comments: Last Taken:02/11/18 Time:7AM Pregabalin (Lyrica) 150 MG CAPSULE 1 Capsule ORAL TWICE DAILY Qty = 60 No Refills Comments: Last Taken:02/11/18 Time:9AM Quetiapine Fumarate (Seroquel) 200 MG TABLET 1 Tablet ORAL Every night Qty = 30 No Refills Comments: Last Taken:TO START THIS DOSE TONIGHT Time:RECEIVED 100MG AT 8PM ON 02/10/18 Duloxetine HCl (Cymbalta) 60 MG CAPSULE.DR 1 Capsule ORAL DAILY Qty = 30 No Refills Comments: Last Taken:02/11/18 Time:9AM Duloxetine Hydrochloride (Cymbalta) 30 MG CAPSULE.DR 1 Capsule ORAL DAILY Qty = 30 No Refills Comments: Last Taken:02/11/18 Time:9AM The following medications have been changed: Old: Ibuprofen (Ibuprofen) 800 MG TABLET 1 Tablet ORAL as needed for PAIN Qty = 60 New: Ibuprofen (Ibuprofen) 800 MG TABLET 1 Tablet ORAL EVERY 8 HOURS as needed for PAIN Qty = 60 Comments: Last Taken:02/10/18 Time:8PM Studies Pending at Discharge None Copies To: [facility]
--- NOTE | 2018-02-11 17:34 | SOCIAL WORKER PROG NOTE PSYCH ---
Social Work Progress Note Progress Note This story writer met with patient. As she had requested on Sunday, she was informed that her intake with [facility] has been scheduled for 02/12/18 at 10am. She was also informed that she is on the [place] [facility] wait list. Patient requested a list of rehab phone numbers which are included in the discharge documents in the referral section. Patient stated that she has a 12 Step AA meeting book and plans to attend AA. She denied SI/HI/AH/VH and identified a safety plan of "I'm gonna call IOP or go to the ER." She accepted the crisis numbers and warm line numbers upon discharge. This story writer spoke with Cesilia Mooney, patient's conservator, by phone ) regarding the [facility] intake appointment. She stated that the patient may stay at her grandmother's house (December) for a few days and the patient will continue to call [facility] regarding bed as well as rehab bed availability. This story writer spoke with Suzette Gomez at [facility] in [place] ([phone]). She stated that they have a bed available today for the patient. This story writer relayed the information to the patient who stated that she would like to speak with Manpreet Gomez to see if they can hold the bed until tomorrow in order to allow for the patient to address the warrant. Manpreet Gomez stated that a bed could not be held and agreed to allow time for this story writer and patient to contact her conservator. This story writer and patient contacted Cesilia Mooney, patient's conservator, by phone ([phone]). She was informed that the bed at [facility] could not be held. Patient and Cesilia determined that the patient would not take the bed at this time and that she would go to her grandmother's home today. Patient is agreeable to calling 211 for a CAN assessment if needed. Patient will also attend the [facility] intake tomorrow at 10am. Cesilia will meet the patient at court after the patient turns herself in at the police department. Patient will also continue to contact rehab programs in interest of bed availability. Patient was informed of the following phone calls: -[facility] [place]: this story writer spoke with Suzette Gomez and patient is still on the wait list, she is instructed to call daily -[facility]: this story writer spoke with Gisselle who confirmed that there are no available beds and patient is encouraged to call daily -[facility]: patient may call to complete a phone screening (she refused to call before discharging today and will contact them from home) - [facility]: this story writer spoke with Cesilia who stated that there are no available beds -[facility]: vm left at 9:03am for admissions -[facility]: vm left at 9:03am for admissions -[facility]: vm left for 9:12am for admissions -[facility]: vm left for Parul at 11:07am (this story writer spoke with Parul at 9:10am, but she requested that this story writer call back later in the morning) -[facility]:this story writer spoke with Cassie at 11:07am encouraging patient to call daily This story writer spoke with Cesilia Mooney to obtain her fax number for the patient health summary. She was informed that this story writer spoke with Suzette Gomez with [facility] [place] prior to the patient discharging and it appeared that from this conversation a bed would not have been available today, as had been originally informed. However, patient is encouraged to call them daily regarding availability as she will remain on the wait list. Cesilia was informed that [facility] for Andrew Sridevi (patient's grandmother) did not fax to her successfully earlier today and that it would be faxed with the patient health summary. Cesilia thanked this story writer for the call and information. Patient Health Summary and [facility] for December was faxed to Cesilia at at [phone]. [facility] for December was signed by Cesilia Mooney and returned via fax to this story writer. Faxed Referral(s) Referred To: [facility] Transition of Care Documents sent: Health Summary Faxed to: [facility] Fax #: [phone] Faxed by: Sid Carroll LCSW Date faxed: 02/11/18 Time Faxed: [phone]
== END 2018-02-11 11:54 | DRG 753 ==
LOC: ERH 22:24 → ERHI 02-03 12:32 → CP SOUTH 02-03 12:32 → ENTRNSPT 02-03 14:31 → CP SOUTH 02-03 14:53 → EDTRNSPT 02-03 15:01 → EDTRNSPTSTS 02-03 15:01 → CMPTRNSPT 02-03 15:12 → CP SOUTH 02-04 10:19
PROVIDERS: Emergency Medicine; Internal Medicine; Psychiatry & Neurology Psychiatry
DX: F31.9 Bipolar disorder, unspecified (principal); F41.9 Anxiety disorder, unspecified; F11.90 Opioid use, unspecified, uncomplicated
CPT/HCPCS: 36415; 80307; 81025; 86803; 87389; 87491; 87591; G0480; J0401; J3490

== ENCOUNTER 2018-02-19 10:11 | Emergency (ER) | payer OTHER ==
[~2018-02-19 10:11] MED LIST changes: +ABILIFY15 M1 PO; +CYMBALTA30 M1 PO; +CYMBALTA60 M1 PO; +LYRICA150 M1 PO; +NICORELIEF2 MG PO; +OMEPRAZOLE20 M2 PO; +SEROQUEL200 M1 PO
[2018-02-19 10:16] VITALS: BP 127/87
== END 2018-02-19 11:08 | disposition admitted as inpatient to this hospital (09) ==
LOC: ERH 10:11
DX: M79.662 Pain in left lower leg (principal)